=== PATIENT | female | born 1935 | race Caucasian/White ===

== ENCOUNTER → 2016-12-08 | Outpatient (REF) | payer MEDICARE ==
[~2016-12-08] MED LIST: /ADVA50050 IN; /ALLEGDTA OR; ALEN10TA2 OR; KLOR10TA OR; LIPI20TA OR; LISI20TA5 OR; OMEP20TA7 OR; PROAIR; SING10TA31 OR
== END ==
LOC: M LAB REF 09:57
PROVIDERS: ATTEND Physician Assistant
DX: R30.0 Dysuria (principal); R11.0 Nausea

== ENCOUNTER 2017-02-10 20:05 | Emergency (ER) | payer OTHER, MEDICARE ==
[~2017-02-10] VITALS: Ht 152.4 cm; Wt 60.6 kg
[2017-02-10] MEDS ORDERED: ASPI81TA85 PO (20:24)
[2017-02-10] MEDS ORDERED: MOTR200T44 PO (20:24)
[2017-02-10] MEDS ORDERED: NAPR500T PO (22:07)
[2017-02-10] MEDS ORDERED: NAPROXEN 250 MG TAB PO ONE (22:15)
[2017-02-10 22:21] VITALS: BP 165/82
--- NOTE | 2017-02-10 22:42 | REP ---
Clinical: Trauma. Technique: Frontal view of the chest with multiple views of the right and left hemithorax. Findings: Frontal view of the chest demonstrates no acute cardiopulmonary process. Multiple views of the bilateral hemithoraces demonstrates old healed fractures without evidence for acute rib fracture or pathology. Impression: Old healed rib fractures. No definite acute rib fracture identified. Signed by Garry Lema MD 02/10/2017 10:33 P
--- NOTE | 2017-02-12 07:18 | ECGEPIP ---
Stationary ECG Study [facility] - ED Test Date: 2017-02-10 Pat Name: KESHA NEWBERRY Department: Room: - Gender: F Hand Outside Cutter: brianna : 1935 Requested By: SARA Meza Order Number: [id number] Reading MD: Chitra Lino Measurements Intervals [place] Rate: 79 P: 44 [place]: 145 QRS: 16 QRSD: 74 T: 39 QT: 363 QTc: 417 Interpretive Statements SINUS RHYTHM NO PRIOR FOR COMPARISON Electronically Signed On 02-12-2017 7:18:38 EDT by Chitra Lino
== END 2017-02-10 22:22 | disposition home or self-care (01) ==
LOC: M ED 22:09
DX: S20.219A Contusion of unspecified front wall of thorax, initial encounter (principal); V49.40XA Driver injured in collision with unspecified motor vehicles in traffic accident, initial encounter; Y92.410 Unspecified street and highway as the place of occurrence of the external cause; Y93.89 Activity, other specified; Y99.9 Unspecified external cause status

== ENCOUNTER 2017-08-21 13:10 | Emergency (ER) | payer MEDICARE, OTHER ==
[2017-08-21] MEDS: NS 1,000 ML IV ×2 (14:45)
[2017-08-21] MEDS: MECLIZINE 25 MG TABLET PO ×2 (14:45)
[2017-08-21 14:57] LABS: BASO # 0.1 10^3/uL (0.0-0.2); BASO % 0.4 % (0.0-1.0); EOS # 0.3 10^3/uL (0.0-0.50); EOS % 2.3 % (0.0-3.0); HEMATOCRIT 32.9 % (36.0-47.0); HEMOGLOBIN 10.4 g/dl (12.0-16.0); IMMATURE GRANULOCYTE % 0.3 % (0-0); LYMPH # 4.2 10^3/uL (1.5-4.5); LYMPH % 36.4 % (24.0-44.0); MEAN CORPUSCULAR HEMOGLOBIN 28.4 pg (27.0-33.0); MEAN CORPUSCULAR HGB CONC 31.6 g/dl (32.0-36.5); MEAN CORPUSCULAR VOLUME 89.9 fl (80.0-96.0); MONO # 0.8 10^3/uL (0.0-0.8); MONO % 6.9 % (0.0-5.0); NEUTROPHILS # 6.1 10^3/uL (1.8-7.7); NEUTROPHILS % 53.7 % (36.0-66.0); PLATELET COUNT, AUTOMATED 166 10^3/uL (150-450); RED BLOOD COUNT 3.66 10^6/uL (4.00-5.40); RED CELL DISTRIBUTION WIDTH 13.9 % (11.5-14.5); WHITE BLOOD COUNT 11.4 10^3/uL (4.0-10.0)
[2017-08-21 15:14] LABS: INR 0.95; PROTHROMBIN TIME 12.8 SECONDS (12.4-14.5)
[2017-08-21 15:15] LABS: ANION GAP 7 MEQ/L (8-16); BLOOD UREA NITROGEN 40 MG/DL (7-18); CALCIUM LEVEL 8.9 MG/DL (8.8-10.2); CARBON DIOXIDE LEVEL 27 MEQ/L (21-32); CHLORIDE LEVEL 106 MEQ/L (98-107); CREATININE FOR GFR 1.55 MG/DL (0.55-1.02); GLUCOSE, FASTING 110 MG/DL (83-110); POTASSIUM SERUM 4.8 MEQ/L (3.5-5.1); SODIUM LEVEL 140 MEQ/L (136-145)
[2017-08-21 15:18] LABS: CPK CREATINE PHOSPHOKINASE 179 U/L (26-192); TROPONIN I 0.07 NG/ML (< 0.10)
[2017-08-21 15:24] LABS: CK-MB VALUE MASS 3.5 NG/ML (0.0-3.6); MB/CK RELATIVE INDEX 1.95 (< OR =4)
[2017-08-21 16:50] LABS: KETONE, URINE AUTO RFX NEGATIVE (NEGATIVE); LEUKOCYTE ESTERASE UR AUTO RFX NEGATIVE (NEGATIVE); MUCUS, URINE RFX SMALL (NEGATIVE); NITRITE, URINE AUTO RFX NEGATIVE (NEGATIVE); RBC, URINE AUTO RFX 1 /HPF (0-3); SPECIFIC GRAVITY UR AUTO RFX 1.006 (1.002-1.035); SQUAM EPITHELIAL CELL UR AURFX 0 /HPF (0-6); WBC, URINE AUTO RFX 2 /HPF (0-3)
[2017-08-21 19:47] LABS: CK-MB VALUE MASS 4.4 NG/ML (0.0-3.6); CPK CREATINE PHOSPHOKINASE 170 U/L (26-192); MB/CK RELATIVE INDEX 2.58 (< OR =4); TROPONIN I 0.18 NG/ML (< 0.10)
[2017-08-21] MEDS: ASPIRIN 325 MG TAB PO ×2 (20:17)
== END 2017-08-21 21:40 | disposition short-term general hospital (02) ==
LOC: M ED 13:10
DX: I21.4 Non-ST elevation (NSTEMI) myocardial infarction (principal); R55 Syncope and collapse; I10 Essential (primary) hypertension; E11.9 Type 2 diabetes mellitus without complications; J45.909 Unspecified asthma, uncomplicated; E78.5 Hyperlipidemia, unspecified; Z82.49 Family history of ischemic heart disease and other diseases of the circulatory system; Z79.899 Other long term (current) drug therapy; Z79.82 Long term (current) use of aspirin; Z87.891 Personal history of nicotine dependence
CPT/HCPCS: 71045

== ENCOUNTER → 2017-09-12 | Outpatient (REF) | payer MEDICARE, OTHER ==
[2017-09-12 13:35] LABS: IRON (FE) 40 UG/DL (50-170); PERCENT SATURATION 8.9 % (13.2-45.0); TOTAL IRON BINDING CAPACITY 447 UG/DL (250-450)
== END ==
LOC: M LAB REF 12:02
DX: D64.9 Anemia, unspecified (principal)
CPT/HCPCS: 83550

== ENCOUNTER → 2017-09-30 | Outpatient (REF) | payer MEDICARE, OTHER ==
[2017-09-30 14:16] LABS: IRON (FE) 109 UG/DL (50-170); PERCENT SATURATION 23.4 % (13.2-45.0); TOTAL IRON BINDING CAPACITY 465 UG/DL (250-450)
== END ==
LOC: M LAB REF 13:49
DX: D50.9 Iron deficiency anemia, unspecified (principal)
CPT/HCPCS: 83550

== ENCOUNTER 2017-11-06 08:02 | Outpatient (RCR) | payer MEDICARE | END 2017-11-15 | LOC: M CR 08:02 | DX: I21.4 Non-ST elevation (NSTEMI) myocardial infarction (principal) | CPT/HCPCS: 93798 ==

== ENCOUNTER 2017-11-21 14:26 | Outpatient (RCR) | payer MEDICARE | END 2017-12-15 | LOC: M CR 14:26 | DX: I21.4 Non-ST elevation (NSTEMI) myocardial infarction (principal) | CPT/HCPCS: 93798 ==

== ENCOUNTER → 2017-11-28 | Outpatient (REF) | payer MEDICARE ==
[2017-11-28 13:47] LABS: IRON (FE) 27 UG/DL (50-170); PERCENT SATURATION 6.9 % (13.2-45.0); TOTAL IRON BINDING CAPACITY 394 UG/DL (250-450)
== END ==
LOC: M LAB REF 12:52
DX: D64.9 Anemia, unspecified (principal)
CPT/HCPCS: 83550

== ENCOUNTER 2017-12-30 07:22 | Day surgery (SDC) | payer MEDICARE ==
[2017-12-30] MEDS ORDERED: LIDOCAINE 2% INJ 100 MG/5 ML SDV (FOR ANES.) As Ordered (07:52)
[2017-12-30] MEDS ORDERED: PROPOFOL 200 MG/20 ML VIAL As Ordered (07:52)
[2017-12-30] MEDS: NS 1,000 ML IV (08:00)
[2017-12-30] MEDS ORDERED: fentaNYL 100 MCG/2 ML INJECTION (J3010) As Ordered (14:23)
== END 2017-12-30 16:20 | disposition home or self-care (01) ==
LOC: M OPP 07:22
DX: D50.9 Iron deficiency anemia, unspecified (principal); Z86.010 Personal history of colon polyps; K64.0 First degree hemorrhoids; K57.30 Diverticulosis of large intestine without perforation or abscess without bleeding; K44.9 Diaphragmatic hernia without obstruction or gangrene; I10 Essential (primary) hypertension; E78.5 Hyperlipidemia, unspecified; K21.9 Gastro-esophageal reflux disease without esophagitis; K22.70 Barrett's esophagus without dysplasia; Z85.828 Personal history of other malignant neoplasm of skin; J45.909 Unspecified asthma, uncomplicated; M19.90 Unspecified osteoarthritis, unspecified site; H25.9 Unspecified age-related cataract; Z78.0 Asymptomatic menopausal state; Z88.1 Allergy status to other antibiotic agents; Z79.82 Long term (current) use of aspirin; Z79.899 Other long term (current) drug therapy; Z80.8 Family history of malignant neoplasm of other organs or systems; Z87.891 Personal history of nicotine dependence
CPT/HCPCS: 45378

== ENCOUNTER 2018-01-16 09:28 | Outpatient (RCR) | payer MEDICARE | END 2018-02-14 | LOC: M CR 09:28 | DX: I21.4 Non-ST elevation (NSTEMI) myocardial infarction (principal) | CPT/HCPCS: 93798 ==

== ENCOUNTER 2018-02-08 07:26 | Inpatient (IN) | payer MEDICARE ==
[2018-02-08 07:56] LABS: HEMATOCRIT 40.9 % (36.0-47.0); HEMOGLOBIN 13.7 g/dl (12.0-15.5); MEAN CORPUSCULAR HEMOGLOBIN 29.7 pg (27.0-33.0); MEAN CORPUSCULAR HGB CONC 33.5 g/dl (32.0-36.5); MEAN CORPUSCULAR VOLUME 88.7 fl (80.0-96.0); PLATELET COUNT, AUTOMATED 184 10^3/uL (150-450); RED BLOOD COUNT 4.61 10^6/uL (4.00-5.40); RED CELL DISTRIBUTION WIDTH 13.2 % (11.5-14.5); VENOUS BASE EXCESS -1.4 (-2.0-2.0); VENOUS HCO3 25.2 MEQ/L (23.0-27.0); VENOUS O2 SATURATION 43.6 % (60.0-80.0); VENOUS PARTIAL PRESSURE CO2 49.4 mmHg (38.0-50.0); VENOUS PARTIAL PRESSURE O2 24.7 mmHg (30.0-50.0); VENOUS PH 7.325 UNITS (7.330-7.430); VENOUS TOTAL CO2 26.7 MEQ/L (24.0-28.0)
[2018-02-08 07:59] LABS: ADD MANUAL DIFFER YES; DIFF SLIDE NUMBER 84; POSITIVE DIFF POS FLAG; WHITE BLOOD COUNT 13.6 10^3/uL (4.0-10.0)
[2018-02-08] MEDS: methylPREDNISolone INJ 125 MG/2 ML VIAL (J2930) IV ×2 (08:01→19:46)
[2018-02-08 08:06] LABS: INR 0.86; PROTHROMBIN TIME 11.8 SECONDS (12.4-14.5)
[2018-02-08] MEDS: IPRATROPIUM 0.5MG/ALBUTEROL 2.5MG INH SOL UD 3ML (DUONEB)(J7620) NEB ×3 (08:08→20:53)
[2018-02-08 08:21] LABS: ALBUMIN 4.1 GM/DL (3.2-5.2); ALBUMIN/GLOBULIN RATIO 0.98 (1.00-1.93); ALKALINE PHOSPHATASE 101 U/L (45-117); ALT/SGPT 28 U/L (12-78); ANION GAP 8 MEQ/L (8-16); AST/SGOT 27 U/L (7-37); BILIRUBIN,DIRECT 0.2 MG/DL (0.0-0.2); BILIRUBIN,TOTAL 0.9 MG/DL (0.2-1.0); BLOOD UREA NITROGEN 29 MG/DL (7-18); CARBON DIOXIDE LEVEL 26 MEQ/L (21-32); CHLORIDE LEVEL 101 MEQ/L (98-107); CPK CREATINE PHOSPHOKINASE 82 U/L (26-192); CREATININE FOR GFR 1.34 MG/DL (0.55-1.30); GLOMERULAR FILTRATION RATE 40.1 (>32); GLUCOSE, FASTING 111 MG/DL (70-100); POTASSIUM SERUM 4.4 MEQ/L (3.5-5.1); SODIUM LEVEL 135 MEQ/L (136-145); TOTAL PROTEIN 8.3 GM/DL (6.4-8.2); TROPONIN I < 0.02 NG/ML (< 0.10)
[2018-02-08 08:24] LABS: ANISOCYTOSIS 1+; ATYPICAL LYMPH 8 % (0-5); EOSINOPHILS 2 % (0-5); LYMPHOCYTES 37 % (16-52); NEUTROPHILS 53 % (35-75); POIKILOCYTOSIS 1+; POLYCHROMASIA 1+; SMUDGE CELLS 3+
[2018-02-08 08:25] LABS: OVALOCYTES 1+
[2018-02-08 08:26] LABS: CK-MB VALUE MASS 2.5 NG/ML (<3.6); MB/CK RELATIVE INDEX 3.04 (< OR =4); NT-PRO BNP 1107 PG/ML (<450)
[2018-02-08 08:44] LABS: PLATELET ESTIMATE NORMAL (NORMAL)
[2018-02-08] MEDS: METOPROLOL TART 25 MG TABLET PO ×2 (09:36→20:29)
[2018-02-08] MEDS ORDERED: ONDANSETRON 4MG/2ML VIAL (J2405) IV (11:00)
[2018-02-08] MEDS ORDERED: BISACODYL 5 MG TAB PO (11:00)
[2018-02-08] MEDS ORDERED: ACETAMINOPHEN TAB 650MG DOSE (2X325MG) PO (11:00)
[2018-02-08] MEDS ORDERED: HEPARIN SOD (PORCINE) 5000 UNITS/ML VIAL SC (11:00)
[2018-02-08] MEDS: ASPIRIN 81 MG ENTERIC TAB PO (11:39)
[2018-02-08] MEDS: LISINOPRIL 20 MG TAB PO (11:41)
[2018-02-08] MEDS: HEPARIN SOD (PORCINE) 5000 UNITS/ML VIAL SQ ×2 (11:41→20:29)
[2018-02-08 12:02] LABS: ESTIMATED AVERAGE GLUCOSE 140 MG/DL (60-110); HEMOGLOBIN A1c 6.5 %
[2018-02-08] MEDS: THIAMINE 100 MG TAB PO (12:34)
[2018-02-08] MEDS: MULTIVITAMINS/MINERALS THERAP 1 TAB PO (12:34)
[2018-02-08] MEDS: OMEPRAZOLE 20 MG CAP PO ×2 (12:34→20:28)
[2018-02-08] MEDS: BUDESONIDE 0.5 MG/2 ML INHALATION SUSPENSION INH ×2 (13:43→20:53)
[2018-02-08] MEDS: CALCIUM/VITAMIN D 500 MG TAB PO ×2 (15:21→20:29)
[2018-02-08] MEDS: MONTELUKAST 10 MG TAB PO (15:21)
[2018-02-08] MEDS: ATORVASTATIN 20 MG TAB PO (20:28)
[2018-02-08] MEDS: SLF 3 ML SYR IV (20:39)
[2018-02-08] MEDS ORDERED: SLF 3 ML SYR IV (20:45)
[2018-02-09] MEDS: SLF 3 ML SYR IV ×3 (05:38→21:12)
[2018-02-09 05:41] LABS: HEMATOCRIT 33.7 % (36.0-47.0); MEAN CORPUSCULAR HEMOGLOBIN 29.2 pg (27.0-33.0); MEAN CORPUSCULAR HGB CONC 33.8 g/dl (32.0-36.5); MEAN CORPUSCULAR VOLUME 86.4 fl (80.0-96.0); PLATELET COUNT, AUTOMATED 167 10^3/uL (150-450); RED CELL DISTRIBUTION WIDTH 13.1 % (11.5-14.5); WHITE BLOOD COUNT 15.9 10^3/uL (4.0-10.0)
[2018-02-09 05:50] LABS: ANION GAP 9 MEQ/L (8-16); BLOOD UREA NITROGEN 33 MG/DL (7-18); CALCIUM LEVEL 8.4 MG/DL (8.8-10.2); CARBON DIOXIDE LEVEL 25 MEQ/L (21-32); CHLORIDE LEVEL 99 MEQ/L (98-107); CREATININE FOR GFR 1.38 MG/DL (0.55-1.30); GLOMERULAR FILTRATION RATE 38.8 (>32); GLUCOSE, FASTING 199 MG/DL (70-100); POTASSIUM SERUM 4.5 MEQ/L (3.5-5.1); SODIUM LEVEL 133 MEQ/L (136-145)
[2018-02-09 06:00] LABS: HEMOGLOBIN 11.4 g/dl (12.0-15.5)
[2018-02-09] MEDS: IPRATROPIUM 0.5MG/ALBUTEROL 2.5MG INH SOL UD 3ML (DUONEB)(J7620) NEB ×4 (08:00→20:32)
[2018-02-09] MEDS: BUDESONIDE 0.5 MG/2 ML INHALATION SUSPENSION INH ×2 (08:00→20:32)
[2018-02-09] MEDS: THIAMINE 100 MG TAB PO (09:15)
[2018-02-09] MEDS: HEPARIN SOD (PORCINE) 5000 UNITS/ML VIAL SQ (09:15)
[2018-02-09] MEDS: OMEPRAZOLE 20 MG CAP PO ×2 (09:15→21:11)
[2018-02-09] MEDS: MONTELUKAST 10 MG TAB PO (09:15)
[2018-02-09] MEDS: METOPROLOL TART 25 MG TABLET PO ×2 (09:15→21:11)
[2018-02-09] MEDS: MULTIVITAMINS/MINERALS THERAP 1 TAB PO (09:15)
[2018-02-09] MEDS: CALCIUM/VITAMIN D 500 MG TAB PO ×2 (09:15→21:11)
[2018-02-09] MEDS: ASPIRIN 81 MG ENTERIC TAB PO (09:15)
[2018-02-09] MEDS: methylPREDNISolone INJ 125 MG/2 ML VIAL (J2930) IV ×2 (09:15→21:12)
[2018-02-09] MEDS: ATORVASTATIN 20 MG TAB PO (21:11)
[2018-02-10] MEDS: SLF 3 ML SYR IV ×3 (05:27→21:09)
[2018-02-10 05:34] LABS: HEMATOCRIT 31.8 % (36.0-47.0); HEMOGLOBIN 10.7 g/dl (12.0-15.5); MEAN CORPUSCULAR HEMOGLOBIN 29.6 pg (27.0-33.0); MEAN CORPUSCULAR HGB CONC 33.6 g/dl (32.0-36.5); MEAN CORPUSCULAR VOLUME 87.8 fl (80.0-96.0); PLATELET COUNT, AUTOMATED 163 10^3/uL (150-450); RED BLOOD COUNT 3.62 10^6/uL (4.00-5.40); RED CELL DISTRIBUTION WIDTH 13.2 % (11.5-14.5); WHITE BLOOD COUNT 13.9 10^3/uL (4.0-10.0)
[2018-02-10 05:51] LABS: ANION GAP 9 MEQ/L (8-16); BLOOD UREA NITROGEN 31 MG/DL (7-18); CALCIUM LEVEL 8.2 MG/DL (8.8-10.2); CARBON DIOXIDE LEVEL 25 MEQ/L (21-32); CHLORIDE LEVEL 102 MEQ/L (98-107); CREATININE FOR GFR 1.38 MG/DL (0.55-1.30); GLOMERULAR FILTRATION RATE 38.8 (>32); GLUCOSE, FASTING 204 MG/DL (70-100); LDH LACTATE DEHYDROGENASE 198 U/L (84-246); POTASSIUM SERUM 4.8 MEQ/L (3.5-5.1); SODIUM LEVEL 136 MEQ/L (136-145)
[2018-02-10] MEDS: IPRATROPIUM 0.5MG/ALBUTEROL 2.5MG INH SOL UD 3ML (DUONEB)(J7620) NEB ×6 (07:18→23:53)
[2018-02-10] MEDS: BUDESONIDE 0.5 MG/2 ML INHALATION SUSPENSION INH ×2 (07:18→20:18)
[2018-02-10] MEDS: MULTIVITAMINS/MINERALS THERAP 1 TAB PO (08:36)
[2018-02-10] MEDS: methylPREDNISolone INJ 125 MG/2 ML VIAL (J2930) IV (08:36)
[2018-02-10] MEDS: MONTELUKAST 10 MG TAB PO (08:36)
[2018-02-10] MEDS: THIAMINE 100 MG TAB PO (08:36)
[2018-02-10] MEDS: METOPROLOL TART 25 MG TABLET PO ×2 (08:36→21:08)
[2018-02-10] MEDS: CALCIUM/VITAMIN D 500 MG TAB PO ×2 (08:36→21:08)
[2018-02-10] MEDS: OMEPRAZOLE 20 MG CAP PO ×2 (08:36→21:08)
[2018-02-10] MEDS: ASPIRIN 81 MG ENTERIC TAB PO (08:37)
[2018-02-10] MEDS: methylPREDNISolone INJ 40 MG/1 ML VIAL (J2920) IV (21:08)
[2018-02-10] MEDS: ATORVASTATIN 20 MG TAB PO (21:08)
[2018-02-11] MEDS: SLF 3 ML SYR IV ×2 (03:55→14:39)
[2018-02-11] MEDS: IPRATROPIUM 0.5MG/ALBUTEROL 2.5MG INH SOL UD 3ML (DUONEB)(J7620) NEB ×4 (04:12→15:32)
[2018-02-11 06:03] LABS: HEMATOCRIT 32.5 % (36.0-47.0); HEMOGLOBIN 11.2 g/dl (12.0-15.5); MEAN CORPUSCULAR HGB CONC 34.5 g/dl (32.0-36.5); MEAN CORPUSCULAR VOLUME 87.1 fl (80.0-96.0); PLATELET COUNT, AUTOMATED 171 10^3/uL (150-450); RED BLOOD COUNT 3.73 10^6/uL (4.00-5.40); RED CELL DISTRIBUTION WIDTH 13.5 % (11.5-14.5); WHITE BLOOD COUNT 18.7 10^3/uL (4.0-10.0)
[2018-02-11 06:22] LABS: ANION GAP 9 MEQ/L (8-16); BLOOD UREA NITROGEN 33 MG/DL (7-18); CARBON DIOXIDE LEVEL 23 MEQ/L (21-32); CHLORIDE LEVEL 103 MEQ/L (98-107); CREATININE FOR GFR 1.31 MG/DL (0.55-1.30); GLOMERULAR FILTRATION RATE 41.2 (>32); GLUCOSE, FASTING 178 MG/DL (70-100); POTASSIUM SERUM 4.2 MEQ/L (3.5-5.1); SODIUM LEVEL 135 MEQ/L (136-145)
[2018-02-11] MEDS: BUDESONIDE 0.5 MG/2 ML INHALATION SUSPENSION INH (08:14)
[2018-02-11] MEDS: ASPIRIN 81 MG ENTERIC TAB PO (08:47)
[2018-02-11] MEDS: predniSONE 20 MG TAB PO (08:47)
[2018-02-11] MEDS: MONTELUKAST 10 MG TAB PO (08:47)
[2018-02-11] MEDS: THIAMINE 100 MG TAB PO (08:47)
[2018-02-11] MEDS: OMEPRAZOLE 20 MG CAP PO (08:47)
[2018-02-11] MEDS: MULTIVITAMINS/MINERALS THERAP 1 TAB PO (08:48)
[2018-02-11] MEDS: CALCIUM/VITAMIN D 500 MG TAB PO (08:48)
[2018-02-11] MEDS: METOPROLOL TART 25 MG TABLET PO (08:51)
== END 2018-02-11 17:10 | disposition home health service (06) | DRG 189 ==
LOC: M ED 07:26 → M ED INP 10:57 → M PCU 13:32
DX: J96.01 Acute respiratory failure with hypoxia (principal); J90 Pleural effusion, not elsewhere classified; I16.0 Hypertensive urgency; J45.909 Unspecified asthma, uncomplicated; K21.9 Gastro-esophageal reflux disease without esophagitis; E78.5 Hyperlipidemia, unspecified; N18.9 Chronic kidney disease, unspecified; D72.829 Elevated white blood cell count, unspecified; Z79.899 Other long term (current) drug therapy; Z87.891 Personal history of nicotine dependence; I12.9 Hypertensive chronic kidney disease with stage 1 through stage 4 chronic kidney disease, or unspecified chronic kidney disease; Z88.8 Allergy status to other drugs, medicaments and biological substances

== ENCOUNTER → 2018-03-11 | Outpatient (CLI) | payer MEDICARE | LOC: M RAD 06:52 | DX: R09.02 Hypoxemia (principal); K44.9 Diaphragmatic hernia without obstruction or gangrene | CPT/HCPCS: 71250 ==

== ENCOUNTER → 2019-06-16 | Outpatient (REF) | payer MEDICARE ==
[~2019-06-16] MED LIST changes: -/ADVA50050 IN; +ADVA1AER2 IN; +ASPI81CH33 PO; +ASPI81TA85 PO; +ASTE0.15; +AZEL0.055; +BUDE0.5S6 INH; +CALC1TAB19 PO; +FERR1TAB8 PO; -LIPI20TA OR; +LIPI20TA PO; -LISI20TA5 OR; +LISI20TA5 PO; +METO1TAB87 PO; +MOTR200T44 PO; +MULT1TAB10 PO; +NAPR-837 PO; -OMEP20TA7 OR; +OMEP20TA7 PO; +PRED10TA2 PO; +PROAAER10 INH; +THIA100TA PO; +TYLE500T78 PO; +VITA-115 PO; +VITA100087 PO; +VITA250L PO; +calcium PO
== END ==
LOC: M LAB REF 16:27
PROVIDERS: ATTEND Internal Medicine
DX: D72.820 Lymphocytosis (symptomatic) (principal)

== ENCOUNTER → 2021-07-23 | Outpatient (CLI) | payer MEDICARE ==
[~2021-07-23] MED LIST changes: -ASPI81TA85 PO; +ASPI81TA86 PO
--- NOTE | 2021-07-23 13:35 | REP ---
INDICATION: CHRONIC KIDNEY DISEASE. COMPARISON: None. TECHNIQUE: Real-time sonographic evaluation of the kidneys is performed. FINDINGS: Renal cortical echogenicity pattern is normal bilaterally and contours are smooth. There is no evidence of hydronephrosis, cyst, mass, or calculus in either kidney. The right kidney measures 7.5 x 3.3 x 3.7 cm. Left renal dimensions are 7.6 x 4.1 x 4.6 cm. Urinary bladder is not well distended and not well evaluated. Ureteral jets could not be visualized with Doppler color evaluation. IMPRESSION: Atrophic kidneys. No hydronephrosis bilaterally. <Electronically signed by Jayson Esposito > 07/23/21 1313
== END ==
LOC: M RAD 12:36
PROVIDERS: ATTEND Internal Medicine
DX: N18.31 Chronic kidney disease, stage 3a (principal)

== ENCOUNTER 2022-04-29 13:43 | Inpatient (IN) | payer MEDICARE ==
[~2022-04-29] VITALS: Ht 152.4 cm; Wt 58.8 kg
[2022-04-29 15:01] LABS: BASO # 0.1 10^3/uL (0.0-0.2); BASO % 0.4 % (0.0-1.0); EOS # 0.2 10^3/uL (0.0-0.5); HEMATOCRIT 35.6 % (36.0-47.0); HEMOGLOBIN 11.4 g/dl (12.0-15.5); LYMPH # 6.2 10^3/uL (1.5-5.0); LYMPH % 54.8 % (24.0-44.0); MEAN CORPUSCULAR HEMOGLOBIN 30.2 pg (27.0-33.0); MEAN CORPUSCULAR VOLUME 94.4 fl (80.0-96.0); MONO # 0.7 10^3/uL (0.0-0.8); MONO % 6.3 % (2.0-8.0); NEUTROPHILS # 4.1 10^3/uL (1.5-8.5); NEUTROPHILS % 36.2 % (36.0-66.0); PLATELET COUNT, AUTOMATED 167 10^3/uL (150-450); RED BLOOD COUNT 3.77 10^6/uL (4.00-5.40); WHITE BLOOD COUNT 11.3 10^3/uL (4.0-10.0)
[2022-04-29 15:11] LABS: INR 0.91; PROTHROMBIN TIME 12.6 SECONDS (12.7-14.5)
[2022-04-29 15:12] LABS: PARTIAL THROMBOPLASTIN TIME 29.7 SECONDS (25.9-37.0)
[2022-04-29 16:02] LABS: CALCIUM LEVEL 9.8 MG/DL (8.8-10.2); CK-MB VALUE MASS 2.4 NG/ML (<3.6); CREATININE FOR GFR 1.89 MG/DL (0.55-1.30); GLOMERULAR FILTRATION RATE 26.7 (>32); MB/CK RELATIVE INDEX 1.28 (< OR =4); POTASSIUM SERUM 5.7 MEQ/L (3.5-5.1)
[2022-04-29] MEDS ORDERED: FURO20TA2 PO (16:13)
[2022-04-29] MEDS ORDERED: LIPI20TA PO (16:13)
[2022-04-29] MEDS ORDERED: LISI20TA33 PO (16:13)
[2022-04-29] MEDS ORDERED: VITMTA PO (16:13)
[2022-04-29] MEDS ORDERED: RABE1TAB4 PO (16:13)
[2022-04-29] MEDS ORDERED: OMEP-173 PO (16:13)
[2022-04-29] MEDS ORDERED: DOXY100T27 PO (16:13)
[2022-04-29] MEDS ORDERED: ECOT81TA5 PO (16:13)
[2022-04-29] MEDS ORDERED: AZEL0.055 NARES (16:13)
[2022-04-29] MEDS ORDERED: HOME MED LIST COMPLETE! XX SCH (16:15)
[2022-04-29 16:42] LABS: RSV AMPLIFICATION NEGATIVE (NEGATIVE)
[2022-04-29] MEDS ORDERED: ASPIRIN 325 MG TAB PO ONE (16:50)
[2022-04-29] MEDS ORDERED: NS 1,000 ML IV SCH (16:55)
[2022-04-29] MEDS ORDERED: SOD POLYSTYRENE SULFONATE SUSP 15GM 60ML UD PO ONE (16:55)
[2022-04-29] MEDS: NS 1,000 ML IV SCH (17:50)
[2022-04-29] MEDS ORDERED: ALBUTEROL SULFATE 2.5 MG/0.5 ML INH NEB SOLN INH PRN (18:05)
[2022-04-29 20:31] LABS: CK-MB VALUE MASS 1.9 NG/ML (<3.6); MB/CK RELATIVE INDEX 2.09 (< OR =4)
[2022-04-29 20:37] LABS: FREE T4 1.02 NG/DL (0.76-1.46); THYROID STIMULATING HORMONE 1.14 uIU/ML (0.358-3.740)
[2022-04-29 20:42] VITALS: BP 168/70
[2022-04-29] MEDS ORDERED: ATORVASTATIN 20 MG TAB PO SCH (21:00)
[2022-04-29 21:19] LABS: CORTISOL BASELINE 9.4 UG/DL (4.3-22.4)
[2022-04-29] MEDS: METOPROLOL TART 25 MG TABLET PO SCH (22:17)
[2022-04-29] MEDS: FERROUS SULFATE 325MG TAB PO SCH (22:18)
[2022-04-29] MEDS: DOXYCYCLINE HYCLATE 100MG TABLET PO SCH (22:18)
[2022-04-30] VITALS (7 sets, daily range): BP systolic 90–176; BP diastolic 44–71
[2022-04-30 02:16] LABS: CK-MB VALUE MASS 1.7 NG/ML (<3.6); MB/CK RELATIVE INDEX 2.02 (< OR =4)
[2022-04-30 02:49] LABS: CREATININE,RANDOM URINE 72.9 MG/DL
[2022-04-30 04:41] LABS: CALCIUM LEVEL 8.7 MG/DL (8.8-10.2); CHOLESTEROL RISK RATIO 2.076 (<5); CREATININE FOR GFR 1.81 MG/DL (0.55-1.30); GLOMERULAR FILTRATION RATE 28.1 (>32); POTASSIUM SERUM 4.3 MEQ/L (3.5-5.1)
[2022-04-30] MEDS: HEPARIN SOD (PORCINE) 5000UNITS/ML 1ML VIAL/SYRINGE SQ SCH ×3 (05:29→21:20)
[2022-04-30] MEDS: NS 1,000 ML IV SCH ×2 (05:29→21:20)
[2022-04-30 08:19] LABS: BASO # 0.1 10^3/uL (0.0-0.2); BASO % 0.6 % (0.0-1.0); EOS # 0.2 10^3/uL (0.0-0.5); EOS % 2.3 % (0.0-3.0); HEMATOCRIT 32.3 % (36.0-47.0); HEMOGLOBIN 10.5 g/dl (12.0-15.5); LYMPH # 6.1 10^3/uL (1.5-5.0); LYMPH % 59.9 % (24.0-44.0); MEAN CORPUSCULAR HGB CONC 32.5 g/dl (32.0-36.5); MEAN CORPUSCULAR VOLUME 95.3 fl (80.0-96.0); MONO # 0.6 10^3/uL (0.0-0.8); MONO % 5.8 % (2.0-8.0); NEUTROPHILS # 3.2 10^3/uL (1.5-8.5); NEUTROPHILS % 31.2 % (36.0-66.0); PLATELET COUNT, AUTOMATED 140 10^3/uL (150-450); RED BLOOD COUNT 3.39 10^6/uL (4.00-5.40); WHITE BLOOD COUNT 10.1 10^3/uL (4.0-10.0)
[2022-04-30] MEDS: ASPIRIN 81 MG CHEW TABLET PO SCH (08:21)
[2022-04-30] MEDS: CLOPIDOGREL 75 MG TAB PO SCH (08:21)
[2022-04-30] MEDS: DOXYCYCLINE HYCLATE 100MG TABLET PO SCH (08:21)
[2022-04-30] MEDS: OMEPRAZOLE 20MG CAP PO SCH (08:21)
[2022-04-30] MEDS: MULTIVITAMINS/MINERALS THERAP 1 TAB PO SCH (08:21)
[2022-04-30] MEDS: METOPROLOL TART 25 MG TABLET PO SCH ×2 (08:22→21:20)
[2022-04-30] MEDS ORDERED: ASPIRIN 81MG ENTERIC TABLET PO SCH (09:00)
[2022-04-30] MEDS ORDERED: amLODIPine 5 MG TAB PO SCH (11:40)
[2022-04-30] MEDS ORDERED: ATORVASTATIN 20 MG TAB PO SCH (21:00)
[2022-04-30] MEDS: FERROUS SULFATE 325MG TAB PO SCH (21:20)
[2022-05-01] VITALS: BP 168/66
[2022-05-01 04:00] VITALS: BP 163/70
[2022-05-01 04:01] LABS: HEMATOCRIT 31.1 % (36.0-47.0); HEMOGLOBIN 10.1 g/dl (12.0-15.5); MEAN CORPUSCULAR HEMOGLOBIN 31.6 pg (27.0-33.0); MEAN CORPUSCULAR HGB CONC 32.5 g/dl (32.0-36.5); MEAN CORPUSCULAR VOLUME 97.2 fl (80.0-96.0); PLATELET COUNT, AUTOMATED 141 10^3/uL (150-450); WHITE BLOOD COUNT 11.5 10^3/uL (4.0-10.0)
[2022-05-01 04:23] LABS: CALCIUM LEVEL 8.6 MG/DL (8.8-10.2); CREATININE FOR GFR 1.59 MG/DL (0.55-1.30); GLOMERULAR FILTRATION RATE 32.6 (>32); POTASSIUM SERUM 4.5 MEQ/L (3.5-5.1)
[2022-05-01] MEDS: HEPARIN SOD (PORCINE) 5000UNITS/ML 1ML VIAL/SYRINGE SQ SCH (06:17)
[2022-05-01 08:00] VITALS: BP 158/70
[2022-05-01] MEDS ORDERED: FLON1SPR NARES (08:50)
[2022-05-01] MEDS ORDERED: AMLO1TAB25 PO (08:50)
[2022-05-01] MEDS ORDERED: CLOP75TA2 PO (08:50)
[2022-05-01] MEDS ORDERED: ATOR40TA75 PO (08:50)
[2022-05-01] MEDS: METOPROLOL TART 25 MG TABLET PO SCH (09:02)
[2022-05-01] MEDS: OMEPRAZOLE 20MG CAP PO SCH (09:02)
[2022-05-01] MEDS: ASPIRIN 81 MG CHEW TABLET PO SCH (09:02)
[2022-05-01] MEDS: MULTIVITAMINS/MINERALS THERAP 1 TAB PO SCH (09:02)
[2022-05-01] MEDS: CLOPIDOGREL 75 MG TAB PO SCH (09:02)
[2022-05-01 09:03] VITALS: BP 163/70
== END 2022-05-01 10:54 | disposition home or self-care (01) | DRG 69 ==
LOC: M ED 13:43 → M ED INP 17:34 → M PCU 20:21
PROVIDERS: ADMIT Internal Medicine; ATTEND Internal Medicine
PROC: B246ZZZ Ultrasonography of Right and Left Heart (ICD-10-PCS; principal; 2022-04-29)
DX: G45.9 Transient cerebral ischemic attack, unspecified (principal); N17.9 Acute kidney failure, unspecified; E87.1 Hypo-osmolality and hyponatremia; I12.9 Hypertensive chronic kidney disease with stage 1 through stage 4 chronic kidney disease, or unspecified chronic kidney disease; J45.20 Mild intermittent asthma, uncomplicated; K21.9 Gastro-esophageal reflux disease without esophagitis; N18.30 Chronic kidney disease, stage 3 unspecified; Z98.41 Cataract extraction status, right eye; Z98.42 Cataract extraction status, left eye; E87.5 Hyperkalemia; Z20.822 Contact with and (suspected) exposure to COVID-19; Z79.82 Long term (current) use of aspirin; Z79.2 Long term (current) use of antibiotics; Z79.52 Long term (current) use of systemic steroids; Z79.899 Other long term (current) drug therapy; R20.0 Anesthesia of skin; J32.9 Chronic sinusitis, unspecified

== ENCOUNTER → 2022-06-03 | Outpatient (REF) | payer MEDICARE ==
[~2022-06-03] MED LIST changes: +AMLO1TAB25 PO; +ATOR40TA75 PO; +AZEL0.055 NARES; +CLOP75TA2 PO; +DOXY100T27 PO; +ECOT81TA5 PO; +FLON1SPR NARES; +FURO20TA2 PO; +LISI20TA33 PO; +OMEP-173 PO; +RABE1TAB4 PO; +VITMTA PO
== END ==
LOC: M LAB REF 16:36
PROVIDERS: ATTEND Physician Assistant Medical
DX: M79.605 Pain in left leg (principal)

== ENCOUNTER → 2022-06-04 | Outpatient (CLI) | payer MEDICARE | LOC: M RAD 14:21 | PROVIDERS: ATTEND Physician Assistant Medical | DX: M79.605 Pain in left leg (principal) ==

== ENCOUNTER → 2022-06-05 | Outpatient (CLI) | payer MEDICARE | LOC: M WUC 11:53 | PROVIDERS: ATTEND Physician Assistant Medical | DX: M25.552 Pain in left hip (principal) ==

== ENCOUNTER → 2022-07-17 | Outpatient (REF) | payer MEDICARE ==
[2022-07-17 13:41] LABS: PHOSPHORUS LEVEL 3.8 MG/DL (2.4-5.1); PTH INTACT 137.7 PG/ML (18.5-88.0)
== END ==
LOC: M LAB REF 12:22
PROVIDERS: ATTEND Internal Medicine
DX: N18.4 Chronic kidney disease, stage 4 (severe) (principal); M85.9 Disorder of bone density and structure, unspecified

== ENCOUNTER → 2022-11-15 | Outpatient (CLI) | payer MEDICARE | LOC: M RAD 13:19 | PROVIDERS: ATTEND Internal Medicine | DX: M50.10 Cervical disc disorder with radiculopathy, unspecified cervical region (principal) ==

== ENCOUNTER 2022-12-11 14:41 | Outpatient (RCR) | payer MEDICARE | END 2022-12-15 | LOC: M OT 14:41 | PROVIDERS: ATTEND Internal Medicine | DX: M48.02 Spinal stenosis, cervical region (principal) ==

== ENCOUNTER 2023-01-10 10:15 | Outpatient (RCR) | payer MEDICARE | END 2023-01-15 | LOC: M OT 10:15 | PROVIDERS: ATTEND Internal Medicine | DX: M48.02 Spinal stenosis, cervical region (principal) ==

== ENCOUNTER → 2023-05-30 | Outpatient (REF) | payer MEDICARE | LOC: M LAB REF 16:07 | PROVIDERS: ATTEND Physician Assistant Medical | DX: B34.9 Viral infection, unspecified (principal) ==

== ENCOUNTER → 2023-07-24 | Outpatient (REF) | payer MEDICARE ==
[2023-07-24 15:26] LABS: URIC ACID 7.7 MG/DL (3.1-7.8)
[2023-07-24 15:29] LABS: PHOSPHORUS LEVEL 4.1 MG/DL (2.4-5.1); PTH INTACT 134.7 PG/ML (18.5-88.0)
== END ==
LOC: M LAB REF 12:48
PROVIDERS: ATTEND Internal Medicine
DX: M85.9 Disorder of bone density and structure, unspecified (principal); N18.4 Chronic kidney disease, stage 4 (severe)

== ENCOUNTER → 2023-07-26 | Outpatient (REF) | payer MEDICARE | LOC: M LAB REF 17:00 | PROVIDERS: ATTEND Physician Assistant Medical | DX: B34.9 Viral infection, unspecified (principal) ==